=== PATIENT | male | born 1990 | race Caucasian/White ===

== ENCOUNTER 2017-04-08 10:10 | Emergency (ER) | payer MEDICAID ==
--- NOTE | 2017-04-08 10:28 | ED Physician Documentation ---
PD HPI HEENT - Stated complaint Stated Complaint: MOUTH PX - Chief complaint Chief Complaint: Heent - History obtained from History obtained from: Patient - History of Present Illness Timing - onset: How many days ago (2-3) Timing - duration: Days Timing - details: Gradual onset, Still present Location: Tooth (left upper) Improves: No: Medication Associated symptoms: No: Fever, Congestion, Rhinorrhea, Facial swelling Similar symptoms before: Diagnosis (dental abscess, and had seen dentist about 3 weeks ago with Rx for Clindamycin. Pain and swelling went away in few days. Has been off med for a week or so, and symptoms returning. Has dental appt for extraction in May.) Review of Systems Constitutional: denies: Fever, Chills Nose: denies: Rhinorrhea / runny nose, Congestion Throat: reports: Dental pain / toothache. denies: Sore throat Cardiac: denies: Chest pain / pressure Respiratory: denies: Dyspnea, Cough PD PAST MEDICAL HISTORY - Past Medical History Cardiovascular: None Respiratory: None Endocrine/Autoimmune: None - Present Medications Home Medications: Ambulatory Orders Medication Instructions Recorded Confirmed Clindamycin [Cleocin] 150 mg PO QID #28 capsule 04/08/17 Ondansetron HCl [Zofran] 4 mg PO Q6H PRN #20 tablet 04/08/17 Tramadol HCl 50 mg PO Q6H PRN #20 tablet 04/08/17 - Allergies Allergies/Adverse Reactions: Allergies Allergy/AdvReac Type Severity Reaction Status Date / Time No Known Drug Allergies Allergy Verified 04/08/17 10:19 PD ED PE NORMAL - Vitals Vital signs reviewed: Yes - General General: Alert and oriented X 3, No acute distress, Well developed/nourished - HEENT HEENT: Moist mucous membranes, Pharynx benign. No: Dentition benign (mostly okay teeth, but left upper premolar with decay to gumline and swelling/ tenderness of the gum without fluctuance. ) - Neck Neck: Supple, no meningeal sign, No adenopathy - Cardiac Cardiac: RRR, No murmur - Respiratory Respiratory: Clear bilaterally Results - Vitals Vitals: Vital Signs - 24 hr 04/08/17 04/08/17 04/08/17 10:17 11:01 12:03 Temperature 36.8 C 37.2 C Heart Rate 90 76 61 Respiratory 14 16 18 Rate Blood Pressure 141/102 H 105/88 H 110/70 O2 Saturation 100 100 100 Oxygen O2 Source Room air Departure - Departure Disposition: 01 Home, Self Care Clinical Impression: Infected dental caries Condition: Stable Record reviewed to determine appropriate education?: Yes Instructions: ED Abscess Dental Follow-Up: Catarina Vazquez MD [Primary Care Provider] - Prescriptions: Clindamycin [Cleocin] 150 mg PO QID #28 capsule Tramadol HCl 50 mg PO Q6H PRN #20 tablet PRN Reason: Pain Ondansetron HCl [Zofran] 4 mg PO Q6H PRN #20 tablet PRN Reason: Nausea / Vomiting Comments: Drink lots of fluids. Clindamycin as directed. Ibuprofen or Naproxen 2-3 times daily. Add Tylenol or Tramadol for pain. Follow up Dentist as soon as they can get you in. Recheck if not improving over the next few days. Discharge Date/Time: 04/08/17 12:03
[2017-04-08] MEDS ORDERED: CLINDAMYCIN 150 MG CAPSULE PO STA (11:19)
[2017-04-08] MEDS ORDERED: ACETAMINOPHEN 325 MG TABLET PO STA (11:19)
[2017-04-08] MEDS ORDERED: traMADol 50 MG TABLET PO STA (11:19)
[2017-04-08] MEDS ORDERED: ONDANSETRON ODT 4 MG TABLET TL STA (11:19)
[2017-04-08] MEDS ORDERED: CLINDAMYCIN 150 MG CAPSULE PO ONE (11:25)
[2017-04-08] MEDS ORDERED: ACETAMINOPHEN 325 MG TABLET PO ONE (11:25)
[2017-04-08] MEDS ORDERED: traMADol 50 MG TABLET PO ONE (11:25)
[2017-04-08] MEDS ORDERED: ONDANSETRON ODT 4 MG TABLET ONE (11:25)
[2017-04-08 12:07] VITALS: BP 110/70
== END 2017-04-08 12:03 | disposition home or self-care (01) ==
LOC: ED 10:10
DX: K04.7 Periapical abscess without sinus (principal); K02.9 Dental caries, unspecified
CPT/HCPCS: 99283; A9270; Q0162